=== PATIENT | male | born 1980 ===

== ENCOUNTER 2020-09-07 19:56 | Emergency (ER) | payer OTHER ==
[~2020-09-07] VITALS: Ht 165.1 cm; Wt 117.9 kg
[2020-09-07] MEDS ORDERED: COZAAR50 MG PO (20:14)
[2020-09-08] MEDS ORDERED: KETO10TA2 PO (04:24)
[2020-09-08] MEDS ORDERED: TAMS0.4C PO (04:24)
== END 2020-09-08 04:49 | disposition home or self-care (01) ==
LOC: ER 19:56
DX: N20.0 Calculus of kidney (principal); R10.31 Right lower quadrant pain

== ENCOUNTER → 2020-10-06 11:47 | Outpatient (CLI) | payer OTHER ==
[~2020-10-06 11:47] MED LIST: COZAAR50 MG PO; KETO10TA2 PO; TAMS0.4C PO
== END | disposition home or self-care (01) ==
LOC: LAB 11:47
PROVIDERS: ATTEND Surgery
DX: N20.1 Calculus of ureter (principal)

== ENCOUNTER 2023-09-07 11:23 | Outpatient (CLI) | payer OTHER | END 2023-09-07 11:32 | disposition home or self-care (01) | LOC: SONOGRAMA 11:23 | DX: K76.0 Fatty (change of) liver, not elsewhere classified (principal) ==

== ENCOUNTER 2023-09-07 12:27 | Outpatient (CLI) | payer OTHER ==
[2023-09-07 13:52] LABS: HEMATOCRIT 43.1 % (39.0-48.0); HEMOGLOBIN 14.9 g/dL (13-16.00); MEAN CELL VOLUME 86.8 fL (80.0-100.00); MEAN CORPUSCULAR HGB CONC 34.5 g/dl (32.0-36.0); PLATELET COUNT 253 K/uL (150-450); RED BLOOD COUNT 4.97 M/uL (4.00-6.00); RED CELL DISTRIBUTION WIDTH 12.6 % (11.5-14.5)
[2023-09-07 13:54] LABS: PH,URINE 7.5 (5.0-8.0); URINE APPEARANCE Clear; URINE BILIRRUBIN Negative (NEGATIVE); URINE BLOOD Negative; URINE COLOR Dark Yellow; URINE GLUCOSE Negative (NEGATIVE); URINE LEUKOCYTE Negative; URINE NITRATE Negative; URINE PROTEIN 30 (NEGATIVE); URINE UROBILINOGEN 0.2 E.U./dl
[2023-09-07 13:58] LABS: ERYTHROCYTE SEDIMENTATION RATE 15 mm/hr
[2023-09-07 13:59] LABS: URINE EPITHELIAL CELLS 1.6 uL (0.0-38.8); URINE WBC 1.8 uL (0.0-23.2)
[2023-09-07 14:25] LABS: URINE BACTERIA 3.7 uL (0.0-1933)
[2023-09-07 14:39] LABS: BILIRUBIN TOTAL 0.71 mg/dL (0.3-1.2); C-REACTIVE PROTEIN 0.37 MG/DL (0.00-0.29); CREATININE SERUM 0.84 mg/dL (0.70-1.30); GFR 101.2; POTASSIUM 4.09 mEq/L (3.5-5.1); T4 FREE 1.09 NG/ML (0.76-1.46); TSH 1.34 uIU/mL (0.358-3.74)
[2023-09-08 12:50] LABS: ob NEGATIVE (NEGATIVE)
== END 2023-09-07 12:28 | disposition home or self-care (01) ==
LOC: LAB 12:27
DX: I10 Essential (primary) hypertension (principal); E78.2 Mixed hyperlipidemia; K62.5 Hemorrhage of anus and rectum; E55.9 Vitamin D deficiency, unspecified; E03.9 Hypothyroidism, unspecified; Z12.11 Encounter for screening for malignant neoplasm of colon; M19.90 Unspecified osteoarthritis, unspecified site; D50.0 Iron deficiency anemia secondary to blood loss (chronic)

== ENCOUNTER 2024-10-03 08:38 | Outpatient (CLI) | payer OTHER | END 2024-10-03 08:48 | disposition home or self-care (01) | LOC: SONOGRAMA 08:38 | DX: K76.0 Fatty (change of) liver, not elsewhere classified (principal) ==